=== PATIENT | male | born 1950 | race Caucasian/White ===

== ENCOUNTER 2016-12-05 10:02 | Day surgery (SDC) | payer OTHER, MEDICARE ==
[~2016-12-05 10:02] MED LIST: AMBIEN10 M1 PO; COLACE100 M1 PO; DELSYM30 MG/5 M1 PO; HYDROCHLOROTHIA25 M1 PO; IBUPROFEN200 M2 PO; MULTIPLE VITAM1 EAC3 PO; SYNTHROID50 MC1 PO; TOVIAZ4 MG/TAB PO; TYLENOL325 M2 PO; VITAMIN C500 M3 PO; VITAMIN D31000 UNI3 PO
[2016-12-05] MEDS ORDERED: ZOLPIDEM TART12.5 M2 PO (17:16)
[2016-12-05] MEDS ORDERED: AMOXICILLIN500 M1 PO (17:17)
[2016-12-06] MEDS ORDERED: TRAMADOL HCL50 M2 PO (10:40)
[2016-12-06] MEDS ORDERED: CYCLOBENZAPRINE5 M1 PO (10:41)
[2016-12-06] MEDS ORDERED: PERCOCET 5-3251 EACH PO (10:41)
[2016-12-06] MEDS ORDERED: AMBIEN5 M1 PO (10:45)
== END 2016-12-06 11:35 ==
LOC: SHSC 10:02 → ORE 12:45 → PACU 14:34 → 5EA 15:43
PROC: 0RBK4ZZ Excision of Left Shoulder Joint, Percutaneous Endoscopic Approach (ICD-10-PCS; principal; 2016-12-05)
PROC: 0PBB0ZZ Excision of Left Clavicle, Open Approach (ICD-10-PCS; 2016-12-05)
PROC: 0LQ20ZZ Repair Left Shoulder Tendon, Open Approach (ICD-10-PCS; 2016-12-05)
DX: M75.102 Unspecified rotator cuff tear or rupture of left shoulder, not specified as traumatic (principal); M75.42 Impingement syndrome of left shoulder; M19.012 Primary osteoarthritis, left shoulder; Z88.6 Allergy status to analgesic agent; Z88.8 Allergy status to other drugs, medicaments and biological substances; Z79.899 Other long term (current) drug therapy
CPT/HCPCS: C1713; G8978-GP-CI; G8979-GP-CI; G8980-GP-CI; J0171; J0690; J2250